=== PATIENT | male | born 1955 | race Asian ===

== ENCOUNTER → 2025-10-28 14:51 | Outpatient (REF) | payer MEDICARE, SELFPAY | LOC: DHVS 14:51 | PROVIDERS: ATTENDING PHYSICIAN Internal Medicine | DX: I10 Essential (primary) hypertension (principal); E78.00 Pure hypercholesterolemia, unspecified; N40.0 Benign prostatic hyperplasia without lower urinary tract symptoms; Z86.0100 Personal history of colon polyps, unspecified; R09.89 Other specified symptoms and signs involving the circulatory and respiratory systems; Z00.00 Encounter for general adult medical examination without abnormal findings; Z23 Encounter for immunization | CPT/HCPCS: 93880 ==